=== PATIENT | female | born 1965 | race Caucasian/White ===

== ENCOUNTER 2017-11-16 14:36 | Emergency (ER) | payer SELFPAY ==
[2017-11-16] MEDS ORDERED: IPRATROPIUM/ALBUTEROL 0.5-2.5 MG/3 ML AMPUL NEB ONE (15:18)
--- NOTE | 2017-11-16 15:22 | ER Document Report ---
ED Medical Screen (RME) - General Chief Complaint: Cold Symptoms Stated Complaint: COUGH,SHORTNESS OF BREATH Time Seen by Provider: 11/16/17 15:18 Mode of Arrival: Ambulatory Information source: Patient Notes: This is a 52-year-old female with no medical problems, greater than 30-pack- year history of smoking who presents to the emergency room with cough, shortness of breath for the past week. She states she was exposed to her 4-year -old child who had a URI. She has been sick since. She is a 1 pack per day smoker since the age of 17. She is not on any medicines and no allergies to medicines. TRAVEL OUTSIDE OF THE [place] IN LAST 30 DAYS: No - HPI Onset: Last week Onset/Duration: Gradual Quality of pain: No pain Severity: None Pain Level: Denies Associated Symptoms: Shortness of breath. denies: Chest pain, Fever, Headache Exacerbated by: Denies Relieved by: Denies Similar symptoms previously: No Recently seen / treated by doctor: No - Related Data Smoking: Cigarettes Frequency of alcohol use: None Drug Abuse: None Allergies/Adverse Reactions: No Known Allergies Allergy (Unverified 11/16/17 17:10) Past Medical History - General Information source: Patient - Social History Cigarette use (# per day): Yes - 1 pack per day Chew tobacco use (# tins/day): No Frequency of alcohol use: None Drug Abuse: None Lives with: Family Family history: None - Medical History Medical History: Negative Renal/ Medical History: Denies: Hx Peritoneal Dialysis Psychiatric Medical History: Reports: Hx Depression Past Surgical History: Reports: Hx Section, Hx Oral Surgery - x2 teeth removed Review of Systems - Review of Systems Constitutional: denies: Chills, Fever EENT: No symptoms reported Cardiovascular: No symptoms reported Respiratory: See HPI Gastrointestinal: No symptoms reported Genitourinary: No symptoms reported Female Genitourinary: No symptoms reported Musculoskeletal: No symptoms reported Skin: No symptoms reported Hematologic/Lymphatic: No symptoms reported Neurological/Psychological: No symptoms reported Physical Exam - Vital signs Vitals: Temp Pulse Resp BP Pulse Ox 98.7 F 93 18 119/82 93 11/16/17 14:40 11/16/17 14:40 11/16/17 14:40 11/16/17 14:40 11/16/17 14:40 Notes: Physical exam: GENERAL: 52-year-old female, alert and oriented 3, no acute distress. Oxygen saturation 93%. HEAD: Atraumatic, normocephalic. EYES: Pupils equal round and reactive to light, extraocular movements intact, sclera anicteric, conjunctiva are normal. ENT: TMs normal, nares patent, oropharynx clear without exudates. Moist mucous membranes. NECK: Normal range of motion, supple without obvious mass or JVD. LUNGS: Bilateral wheezing, more than the left with some crackles at the left base HEART: Regular rate and rhythm without murmurs, rubs or gallops. ABDOMEN: Soft, normoactive bowel sounds. No tenderness to palpation. No guarding, no rebound. No masses appreciated. EXTREMITIES: Normal range of motion, no pitting or edema. No clubbing or cyanosis. NEUROLOGICAL: Cranial nerves II through XII grossly intact. Normal speech, moving all extremities. PSYCH: Normal mood, normal affect. SKIN: Warm, Dry, normal turgor, no rashes or lesions noted. Course - Re-evaluation Re-evalutation: 11/16/17 16:39 I had a long discussion with the patient regarding smoking and the risks of cancer. She is coming in with shortness of breath and cough for the past week after being exposed to her grandchild who was sick with a URI. She looks relatively good. The chest x-ray does show an infiltrate at the left base. We will get to treat her for community-acquired pneumonia with doxycycline and I am going to give her an inhaler to go home with. However, I stressed the importance that she follow-up with her doctor and have a repeat x-ray in 2-3 weeks to ensure that there is complete resolution on chest x-ray. I have stressed that the smoking makes her at risk of COPD (which I told her I thought she had) as well as lung cancer. Finally, I advised her to follow-up with her primary care doctor and I will refer her to 3 physicians affiliated with the hospital (she states she has [employer]). I will give her a number of the community clinic if there is any problems with the insurance. - Vital Signs Vital signs: Temp Pulse Resp BP Pulse Ox 98.4 F 80 18 107/65 95 11/16/17 17:06 11/16/17 17:06 11/16/17 17:06 11/16/17 17:06 11/16/17 17:06 - Diagnostic Test Radiology reviewed: Image reviewed, Reports reviewed - Left lower pneumonia Doctor's Discharge - Discharge Clinical Impression: Pneumonia Condition: Stable Disposition: HOME, SELF-CARE Instructions: Pneumonia (OM) Additional Instructions: As we discussed, the x-ray shows a left lower lobe infiltrate consistent with a pneumonia. However, it is very important that you have a follow-up x-ray in the next 2-3 weeks after treatment to ensure that there is complete resolution of the x-ray. Given your significant smoking history, you are at risk of lung cancer as well as COPD. We started doxycycline in the emergency room and I would like you to continue this. It is very important that when you take this medicine, drink a lot of water with the pill. If not, the pill can cause a lot of esophageal and gastric irritation. Use the inhaler as needed: 2 puffs every 4-6 hours For the medicines: Use [employer] and put in the name of the medicine and this will tell you where the cheapest [place] for the medicine is and may be with some discounts. Return to the emergency room for worsening shortness of breath, worsening cough or any concerns or getting worse. Recommendations: It is recommended to followup with a primary care doctor and I would like you to call the offices on Saturday for the next available appointment. The lower 3 primary care doctors affiliated with this hospital. I also put the number of the [facility] which is a free clinic on the front of the chart in case there is any problems with the insurance. Dr. Laurel Lara [facility] [address], [place] [address] [phone] Dr Vivar Address: [address] [place] [place] [address] Dr Garrett Address: [address] , [place] [address] Prescriptions: Doxycycline Hyclate 100 mg PO BID #20 capsule Forms: Parent Work Note Referrals: LOCALMD,NO [Primary Care Provider] - Follow up as needed
--- NOTE | 2017-11-16 16:30 | RADIOLOGY REPORT (SQ) ---
EXAM DESCRIPTION: CHEST 2 VIEWS COMPLETED DATE/TIME: 11/16/2017 3:49 pm REASON FOR STUDY: cough, sob COMPARISON: None. EXAM PARAMETERS: NUMBER OF VIEWS: two views TECHNIQUE: Digital Frontal and Lateral radiographic views of the chest acquired. RADIATION DOSE: NA LIMITATIONS: none FINDINGS: LUNGS AND PLEURA: Airspace opacity noted at the left lung base. No sizable pleural effusi on or pneumothorax. MEDIASTINUM AND HILAR STRUCTURES: No masses or contour abnormalities. HEART AND VASCULAR STRUCTURES: Heart normal size. No evidence for failure. BONES: No acute findings. HARDWARE: None in the chest. IMPRESSION: Airspace opacity at the left lung base, may be secondary to pneumonia. Radiographic fol lowup after treatment recommended to ensure complete resolution and exclude a different etiology. TECHNICAL DOCUMENTATION: JOB ID: [id number] [employer]- All Rights Reserved Reading location - IP/workstation name: [email or web address]
[2017-11-16] MEDS ORDERED: ALBUTEROL SULFATE HFA (90 MCG/PUFF) 200 PUFF/8.5 GM MDI IH ONE (16:38)
[2017-11-16] MEDS ORDERED: DOXYCYCLINE HYCLATE 100 MG TABLET PO ONE (16:38)
[2017-11-16 17:08] VITALS: BP 107/65
== END 2017-11-16 17:10 | disposition home or self-care (01) ==
LOC: ER 14:36
DX: J18.9 Pneumonia, unspecified organism (principal); R06.02 Shortness of breath; R05 Cough; F17.200 Nicotine dependence, unspecified, uncomplicated
CPT/HCPCS: 94640; 99283; 71046; J3490; J7620